=== PATIENT | female | born 1980 | race Caucasian/White ===

== ENCOUNTER 2024-03-31 09:51 | Emergency (ER) | payer BC ==
[~2024-03-31] VITALS: Ht 167.6 cm; Wt 127.3 kg
[2024-03-31 09:55] VITALS: TEMP 98.7
[2024-03-31] MEDS ORDERED: Ketorolac 30 MG/ML VIAL IM ONE (11:15)
[2024-03-31] MEDS ORDERED: ZOFRAN ODT4 MG PO (12:22)
[2024-03-31 12:46] VITALS: BP 155/98; PULSE 73
== END 2024-03-31 12:50 | disposition home or self-care (01) ==
LOC: COL.ER 09:51
DX: R51.9 Headache, unspecified (principal); Z86.69 Personal history of other diseases of the nervous system and sense organs
CPT/HCPCS: J0780; J1885